=== PATIENT | male | born 1960 | race Caucasian/White ===

== ENCOUNTER 2016-10-24 12:39 | Observation (INO) ==
--- NOTE | 2016-10-24 13:02 | Emergency Department Note ---
Disposition Clinical Impression: Chest pain Qualifiers: Chest pain type: unspecified Qualified Code(s): R07.9 - Chest pain, unspecified Disposition: Admitted As Inpatient Condition: Good Referrals: NONE,PCP [Primary Care Provider] - Forms: ED Satisfaction Letter Chest Pain HPI - General Chief Complaint: ED Chest Pain Stated Complaint: CP// IFRAH// Dizzy Time Seen by Provider: 10/24/16 12:48 Source: patient Limitations: no limitations Vital Signs Reviewed: Yes Nursing Notes Reviewed: Yes - History of Present Illness Pt complaint: chest pain Onset (ago): day(s) (5) Duration: intermittent Onset: during rest Pain Location: left chest Severity scale (1-10): 3 Quality: tightness, aching Pain Radiation: LUE, neck, jaw/teeth Improves with: nothing Worsens with: nothing Context: other (2 stents LAD 2 weeks ago) Treatments prior to arrival chest pain: none - Related Data Allergies Allergy/AdvReac Type Severity Reaction Status Date / Time No Known Allergies Allergy Verified 10/24/16 12:43 All systems ED: reviewed and negative except as stated. Constitutional: Denies: fever, chills, weakness Gastrointestinal: Denies: abdominal pain, vomiting, diarrhea Integumentary: Denies: rash Chest Pain PMH - Past Medical History Medical history: Reports: coronary artery disease, myocardial infarction - Social History Smoking Status: Never smoker Alcohol use: Reports: none Drug use: Reports: none Physical Exam - General Limitations: no limitations General appearance: alert - Head Head exam: atraumatic, normocephalic, normal inspection - Eye Eye exam: Present: normal appearance, PERRL, EOMI - Expanded Eye Exam Pupils: Left: reactive - ENT ENT exam: normal exam, normal oropharynx, mucous membranes moist - Expanded ENT Exam External ear exam: Present: normal external inspection Mouth exam: Present: normal external inspection Teeth exam: Present: normal inspection Throat exam: Present: normal inspection - Neck Neck exam: Present: normal inspection, full ROM, trachea midline - Chest Chest inspection: Present: normal inspection, symmetric chest wall rise - Respiratory Respiratory exam: Present: normal lung sounds bilaterally - Cardiovascular Cardiovascular exam: Present: regular rate, normal rhythm, normal heart sounds - Abdominal Exam Abdominal exam: Present: soft, Non-Tender. Absent: tenderness, distention, guarding, rebound, rigidity - Extremities Exam Extremities exam: Present: normal inspection, full ROM. Absent: tenderness, pedal edema - Expanded Upper Extremity Exam Shoulder exam: Present: normal inspection, full ROM Arm exam: Present: normal inspection, full ROM Elbow exam: Present: normal inspection, full ROM Forearm/Wrist exam: Present: normal inspection, full ROM Hand exam: Present: normal inspection, full ROM Vascular exam: Normal: capillary refill, radial pulse - Expanded Lower Extremity Exam Hip/Pelvis exam: Present: normal inspection, full ROM Upper leg exam: Present: normal inspection, full ROM Knee exam: Present: normal inspection, full ROM Lower leg exam: Present: normal inspection, full ROM Ankle exam: Present: normal inspection, full ROM Foot/toe exam: Present: normal inspection, full ROM Neurovascular/Tendon exam: Absent: motor deficit, sensory deficit, tendon deficit - Back Exam Back exam: Present: normal inspection, full ROM. Absent: tenderness - Neurological Exam Neurological exam: Present: alert, oriented X3 - Expanded Neurological Exam Patient oriented to: Present: person, place, time Coma Scale Eye Opening: Spontaneous Coma Scale Motor Response: Obeys Commands Coma Scale Verbal Response: Oriented Coma Scale Total: 15 - Psychiatric Psychiatric exam: Present: normal affect, normal mood - Skin Skin exam: Present: warm, dry, intact, normal color Course - Consultations Consultation #1: dr. koch consulted will see on floor admit to medicine Time: 13:53 Vital Signs Temperature 97.8 F 10/24/16 12:41 Pulse Rate 85 10/24/16 12:41 Respiratory Rate 18 10/24/16 12:41 Blood Pressure 143/81 10/24/16 12:41 O2 Sat by Pulse Oximetry 97 10/24/16 12:41 Temperature 97.8 F 10/24/16 12:41 Pulse Rate 85 10/24/16 12:41 Respiratory Rate 18 10/24/16 12:41 Blood Pressure 143/81 10/24/16 12:41 O2 Sat by Pulse Oximetry 97 10/24/16 12:41 Oxygen Delivery Oxygen Delivery Room Air Chest Pain - Medical Records Medical records reviewed: Yes I reviewed the patient's medical records. - Lab Data Lab results reviewed: Yes I reviewed the patient's lab results. Result diagrams: 10/24/16 13:16 10/24/16 13:14 Lab Results 10/24/16 10/24/16 10/24/16 Range/Units 13:14 13:14 13:16 WBC 9.4 (4.3-11.1) K/mcL RBC 5.38 (4.19-5.50) M/mcL Hgb 15.0 (12.9-16.9) g/dL Hct 44.7 (37.5-50.1) % MCV 83.1 (83.0-100.0) fL MCH 27.9 L (28.0-33.3) pg MCHC 33.6 (31.6-35.5) g/dL RDW 13.3 (11.5-14.5) % Plt Count 291 (140-400) K/mcL MPV 9.9 (9.4-12.4) fL Immature Gran % 0.3 (0-4) % Seg Neutrophils % 70.8 % Lymphocytes % 20.7 % Monocytes % 6.9 % Eosinophils % 1.0 % Basophils % 0.3 % Neutrophils # 6.7 (1.6-8.9) K/mcL Lymphocytes # 1.9 (0.6-4.6) K/mcL Monocytes # 0.7 (0.0-1.3) K/mcL Eosinophils # 0.1 (0.0-0.6) K/mcL Basophils # 0.0 (0.0-0.2) K/mcL PT 12.3 H (9.4-12.1) Seconds INR 1.1 APTT 30.5 (26.0-36.0) Seconds Sodium 138 (136-145) mEq/L Potassium 4.0 (3.5-4.5) mEq/L Chloride 105 (98-109) mEq/L Carbon Dioxide 25 (19-29) mEq/L BUN 15 (8-26) mg/dL Creatinine 1.00 (0.72-1.25) mg/dL Est GFR ( Amer) > 60 (> 60) Est GFR (Non-Af Amer) > 60 (> 60) BUN/Creatinine Ratio 15 (6-26) Glucose 115 H (70-99) mg/dL Calculated Osmolality 288 (280-300) Calcium 9.4 (8.6-10.8) mg/dL Troponin I (0-0.03) ng/mL 10/24/16 Range/Units 13:16 WBC (4.3-11.1) K/mcL RBC (4.19-5.50) M/mcL Hgb (12.9-16.9) g/dL Hct (37.5-50.1) % MCV (83.0-100.0) fL MCH (28.0-33.3) pg MCHC (31.6-35.5) g/dL RDW (11.5-14.5) % Plt Count (140-400) K/mcL MPV (9.4-12.4) fL Immature Gran % (0-4) % Seg Neutrophils % % Lymphocytes % % Monocytes % % Eosinophils % % Basophils % % Neutrophils # (1.6-8.9) K/mcL Lymphocytes # (0.6-4.6) K/mcL Monocytes # (0.0-1.3) K/mcL Eosinophils # (0.0-0.6) K/mcL Basophils # (0.0-0.2) K/mcL PT (9.4-12.1) Seconds INR APTT (26.0-36.0) Seconds Sodium (136-145) mEq/L Potassium (3.5-4.5) mEq/L Chloride (98-109) mEq/L Carbon Dioxide (19-29) mEq/L BUN (8-26) mg/dL Creatinine (0.72-1.25) mg/dL Est GFR ( Amer) (> 60) Est GFR (Non-Af Amer) (> 60) BUN/Creatinine Ratio (6-26) Glucose (70-99) mg/dL Calculated Osmolality (280-300) Calcium (8.6-10.8) mg/dL Troponin I 0.00 (0-0.03) ng/mL - Radiology Data Radiology results reviewed: Yes I reviewed the patient's radiology results. - EKG Data EKG attestation: Yes I reviewed and interpreted this EKG. EKG shows normal: sinus rhythm Rate: normal Rhythm: NSR [place]/QRS: normal Interpretation: no acute changes
[2016-10-24 13:25] LABS: Basophils % 0.3 %; Eosinophils # 0.1 K/mcL (0.0-0.6); Hematocrit 44.7 % (37.5-50.1); Immature Granulocytes % 0.3 % (0-4); Lymphocytes # 1.9 K/mcL (0.6-4.6); Lymphocytes % 20.7 %; Mean Corpuscular HGB Conc 33.6 g/dL (31.6-35.5); Mean Corpuscular Hemoglobin 27.9 pg (28.0-33.3); Mean Corpuscular Volume 83.1 fL (83.0-100.0); Mean Platelet Volume 9.9 fL (9.4-12.4); Monocytes # 0.7 K/mcL (0.0-1.3); Monocytes % 6.9 %; Neutrophils # 6.7 K/mcL (1.6-8.9); Platelet Count 291 K/mcL (140-400); Red Blood Count 5.38 M/mcL (4.19-5.50); Red Cell Distribution Width 13.3 % (11.5-14.5); Segmented Neutrophils % 70.8 %
[2016-10-24 13:30] LABS: INR 1.1; Prothrombin Time 12.3 Seconds (9.4-12.1)
[2016-10-24 13:33] LABS: Activated Partial Thrombo Time 30.5 Seconds (26.0-36.0)
[2016-10-24 13:36] LABS: BUN/Creatinine Ratio 15 (6-26); Blood Urea Nitrogen 15 mg/dL (8-26); Calcium 9.4 mg/dL (8.6-10.8); Carbon Dioxide 25 mEq/L (19-29); Chloride 105 mEq/L (98-109); Glucose 115 mg/dL (70-99); Osmolality,Calculated 288 (280-300); Sodium 138 mEq/L (136-145); eGFR For African Americans > 60 (> 60); eGFR For Non-African Americans > 60 (> 60)
--- NOTE | 2016-10-24 15:06 | Cardiology Consult Note ---
<Sebastien,Cedric R - Last Filed: 10/24/16 15:03> Date of Encounter: 10/24/16 Time of Encounter: 15:04 Assessment and Plan (1) Unstable angina Current Visit: Yes Status: Acute Symptoms concerning for unstable angina. Troponin negative x 1. Trend for total of 3. EKG without ischemic changes. Pt reports worsening chest pain since Monday--left sided and midsternal, sharp in nature with radiation to left shoulder/axilla at times, associated with dyspnea and diaphoresis. Reports nitro helps the pain. Does not seem to be associated with exertion. Stress test 10/21/16 negative for ischemia or infarct. Echo 10/21/16 EF preserved without significant findings. Recent PCI in [place] September 2016 to RCA and prox LAD at bifurcation with diag. On ASA, Brilinta, Statin, BB. Continue these medications. 48 hour holter monitor turned in today. Recommend trending troponins, admitting for telemetry monitoring and plan for [facility] tomorrow AM to re-evaluate coronary disease/recent PCI. R/B/A discussed. Pt agrees. [facility] tomorrow. (2) CAD (coronary artery disease) Current Visit: Yes Status: Acute As above, recent PCI September 2016 in [place]. Continue ASA, Brilinta, Statin, BB. Qualifiers: Coronary Disease-Associated Artery/Lesion type: [place] artery [place] vs. transplanted heart: [place] heart Associated angina: with unstable angina Qualified Code(s): I25.110 - Atherosclerotic heart disease of [place] coronary artery with unstable angina pectoris (3) Near syncope Current Visit: Yes Status: Acute Describes dizziness, lightheadedness and near syncope that has worsened since starting BB. Holter monitor turned in today. Await results and monitor telemetry while inpt for any arrhythmias. Discussion w patient/family: The assessment and plan as outlined above was discussed with the patient and/or family members who expressed understanding and agreement. All questions were answered. Thank you for involving us in the care of your patient. Please call with any questions. I will discuss all the above with Dr. Rendon and make changes as necessary. History of Present Illness Consult date: 10/24/16 Requesting physician: Aleksandar Gutiérrez Consult reason: Chest pain Chief complaint: chest pain History of present illness: Mr. Acevedo is a 56 year old male with PMH of CAD s/p PCI 09/2016 in [place], HLD that presented to ED for worsening chest pain. He was seen by Dr. Stacy Acosta 10/18/16. At that time pt described chest pain as well--left sided and sharp with radiation to left axilla/shoulder. A stress test, echo and holter monitor were ordered. Stress test 10/21/16 negative for ischemia or infarct, gated EF 63%. Echo showed EF 60-65%, normal wall motion. Pt reports since stress test Monday the chest pain has continued to intensify, occurs multiple times per day, not associated with exertion, but relieved with nitro. He also reports dyspnea and diaphoresis. He reports since he started a BB 10/18/16 that dizziness has increased, near syncope. Troponin negative, EKG without acute changes. Cardiology consulted for further recommendations. Pt is concerned because in [place], they were debating on CABG vs. PCI and went with PCI. He is concerned there is still underlying disease. [facility] September 2016: 70% mid RCA-PCI 3.5 x 12mm windy 40% 1st OM 80% prox LAD at bifurcation with diag- PCI 3.5x8mm onyz with resultant jailed diagonal branch with LUIS MANUEL 3 flow. Past Med Surg Social Fam HX - Past Medical History Medical history: coronary artery disease, myocardial infarction - Past Surgical History Surgical History: angioplasty/stent - Social History Smoking Status: Former smoker Smokeless Tobacco Status: No Alcohol use: none Drug use: none Medications and Allergies Aspirin [Lo-Dose Aspirin EC] 81 mg PO DAILY 10/24/16 [History] Atorvastatin [Lipitor] 40 mg PO HS 10/24/16 [History] Metoprolol [Lopressor] 25 mg PO BID 10/24/16 [History] Nitroglycerin [Nitroglycerin] 0.4 mg PO Q5M PRN 10/24/16 [History] Pantoprazole Sodium 40 mg PO DAILY 10/24/16 [History] Ticagrelor [Brilinta] 90 mg PO BID 10/24/16 [History] Allergies No Known Allergies Allergy (Verified 10/24/16 12:43) All Systems Review: A 10-system review of systems was performed and is negative for pertinent findings except as documented above in the HPI. - Cardiovascular Cardiovascular: as per HPI, chest pain at rest, chest pain with exertion, diaphoresis, dyspnea at rest, dyspnea on exertion, radiating jaw, neck or arm pain, lightheadedness - Respiratory Respiratory: dyspnea - Neurological Neurological: dizziness Physical Examination Vital Signs, Last 4 Hours Resp BP 10/24/16 14:46 18 120/80 Vital Signs Temp Pulse Resp BP Pulse Ox 10/24/16 14:46 18 120/80 10/24/16 14:04 82 18 117/95 97 10/24/16 12:41 97.8 F 85 18 143/81 97 Intake and Output 10/23/16 10/24/16 10/24/16 23:59 07:59 15:59 Other: Weight 102.058 kg Patient Weight 10/24/16 23:59 Weight 102.058 kg General: Conversant HEENT: Atraumatic, Normocephaly, Mucus Membranes Moist Neck: No JVD, Normal carotid pulses Cardiac: Reg Rate and Rhythm, Normal S1 and S2, No Murmur Lungs: Normal Breath Sounds, No Wheeze, Rales, Rhonchi Neuro: Alert and responsive, No focal deficits noted Abdomen: Soft, Non-Tender Skin: No rashes noted on visualized skin Musculoskeletal: No Chest Wall Tenderness Extremities: No Clubbing, No Cyanosis, No Edema, Normal Pulses Results 10/24/16 13:16 10/24/16 13:14 Short CBC 10/24/16 Range/Units 13:16 WBC 9.4 (4.3-11.1) K/mcL Hgb 15.0 (12.9-16.9) g/dL Hct 44.7 (37.5-50.1) % Plt Count 291 (140-400) K/mcL Neutrophils # 6.7 (1.6-8.9) K/mcL BMP 10/24/16 Range/Units 13:14 Sodium 138 (136-145) mEq/L Potassium 4.0 (3.5-4.5) mEq/L Chloride 105 (98-109) mEq/L Carbon Dioxide 25 (19-29) mEq/L BUN 15 (8-26) mg/dL Creatinine 1.00 (0.72-1.25) mg/dL Glucose 115 H (70-99) mg/dL Calcium 9.4 (8.6-10.8) mg/dL Cardiac Enzymes 10/24/16 Range/Units 13:16 Troponin I 0.00 (0-0.03) ng/mL Impressions Chest X-Ray 10/24/16 13:01 IMPRESSION: No acute cardiopulmonary disease. D/ / Nicholas Ovalle MD / Nicholas Ovalle MD Interpreting Provider: Nicholas Ovalle MD - Imaging and Cardiology Stress Test: report reviewed Echo: report reviewed Cardiac cath: report reviewed Holter: pending - EKG Interpretation EKG results cardiology: personally reviewed (SR) Consult Discharge Plan - Plan Referrals: NONE,PCP [Primary Care Provider] - <Pavel Rendon - Last Filed: 10/24/16 16:24> Date of Encounter: 10/24/16 Assessment and Plan Discussion w patient/family: The assessment and plan as outlined above was discussed with the patient and/or family members who expressed understanding and agreement. All questions were answered. Thank you for involving us in the care of your patient. Please call with any questions. History of Present Illness History of present illness: Mr. Acevedo is a 56 year old male All Systems Review: A 10-system review of systems was performed and is negative for pertinent findings except as documented above in the HPI. Physical Examination Vital Signs, Last 4 Hours Temp Pulse Resp BP Pulse Ox 10/24/16 15:41 97.9 F 74 14 120/83 97 10/24/16 14:46 18 120/80 Results 10/24/16 13:16 10/24/16 13:14 - Attending Attestation Pt seen and examined, in ER, old records reviewed, stress and echo from last week reviewed Agree with essential findings as above, IMP/Plan: 1. Chest pain, atypical, enzemes and EKG negative so far, EKG unchanged, pt and reports similar symptoms before recent heart cath, with recommendations for CABG, which he refused, and had stent placed in proximal LAD. HE is pain free at present, stress imaging on 10/21 was negative for ischemia. Long conversation about options, recommend hospital admission, continue to ru,le out LA by enzematic criteria, left heart cath/possible PCI in AM. 2. CAD - Severe triple vessel CADd, with initial recs for CABG, pt declined, underwent PCi with SINCERE LAD, with partial jailing of proximal Cx. , Normal stress test with continued chest pain, may be due to balanced hypoperfusion, discussed risk and benefit ration of proceeding to [facility], both pt and agree to proceed, orders for NPO at midnight. 3. Palpitations -unclear etiology,has just completed 24 hour holter, will process and review when available, associated with chest pain, can be provoked by exercise.
[2016-10-24] MEDS ORDERED: Naloxone 0.4 MG/ML INJ IVP PRN (17:20)
[2016-10-24] MEDS ORDERED: Nitroglycerin 0.4 MG TAB.SUBL SL PRN (17:40)
--- NOTE | 2016-10-24 17:50 | Internal Med History&Physical ---
<Renard Hernandez J - Last Filed: 10/24/16 17:43> Date of Encounter: 10/24/16 Time of Encounter: 17:43 Assessment and Plan (1) Chest pain Current visit: Yes Status: Acute Worsening chest pain over the last 24 hours described as midsternal, shooting with radiation to left axilla, neck, jaw. Admits to shortness of breath, diaphoresis, nausea, palpitations, dizziness, weakness. Admit for obs Continuous telemetry continuous SPO2 monitoring Continuous oxygen therapy to maintain O2 SATS >92% Trend troponins x3 total Nitro SL for CP, Continue ASA, Brilinta, Nitro, and Statin Consult cardiology [facility] in AM per ENVIRONMENT COORDINATOR cardiology. Qualifiers: Chest pain type: unspecified Qualified Code(s): R07.9 - Chest pain, unspecified (2) Unstable angina Current visit: Yes Status: Acute Worsening chest pain over the last 24 hours with radiation to LT axilla, neck and jaw. Not aggravated with activity or alleviated with rest. Presumed unstable angina. Admit for obs Continuous telemetry continuous SPO2 monitoring Continuous oxygen therapy to maintain O2 SATS >92% Trend troponins x3 total Nitro SL for CP, Continue ASA, Brilinta, Nitro, and Statin Consult cardiology [facility] in AM per ENVIRONMENT COORDINATOR cardiology. (3) Near syncope Current visit: Yes Status: Acute Patient reports that he experienced a near syncopal event associated with chest pain, dyspnea, and tachycardia. Recent AL history s/p stent placement. Reviewed prior echo indicated preserved ejection fraction 60-65% Getting [facility] tomorrow (4) DVT prophylaxis Current visit: Yes Status: Acute D/T hospital stay and CP with dyspnea patient will be less mobile than his baseline placing him at risk for DVT. Start Lovenox 40 mg daily Internal Medicine - H&P: HPI Chief complaint: chest pain Admitted From: Home Plans for Post Hospital Care: Home History of present illness: Mr. Acevedo is a 56 year old male with PMH of CAD, AL 2 stents, status post left heart catheter 2 weeks ago while in [place]. Following AL and status post left heart catheter patient was placed on beta divina, aspirin, Brilinta. Presents to [facility] with worsening chest pain with radiation to left neck and jaw and axilla. EKG in the ED negative for ischemic changes. Troponin negative. CXR showed no acute process. Most recent echo showed preserved ejection fraction at 60-65%. Cardiology ENVIRONMENT COORDINATOR has seen patient in the emergency department and notes that the patient is agreeable to left heart catheter tomorrow. Patient reports chest pain began on Monday the day after heart catheter but notes it has been mild, but getting progressively worse. Last night chest pain increased immensely in intensity and described as midsternal, shooting with radiation to left axilla left neck and jaw. Pain is described as constant, denies worsening with activity. Additionally he notes a fast heart rate and palpitations and admits to shortness of breath, diaphoresis, nausea, dizziness, weakness, near syncopal episodes. He notes the chest pain is relieved with sublingual nitroglycerin. The patient appears to be in no distress at this time resting in bed family at bedside. Denies any chest pain currently, RRR, lungs CTA AP and L. he is being admitted to [facility] further workup and evaluation. Past Med Surg Social Fam HX - Past Medical History Medical history: coronary artery disease, myocardial infarction - Past Surgical History Surgical History: angioplasty/stent - Social History Smoking Status: Former smoker Smokeless Tobacco Status: No Alcohol use: none Drug use: none - Family History Father Race: Family Member Ethnicity: Non- Living Status: Age at : 71 Hx Family Cardiac Disorders: Yes Internal Medicine - H&P: Meds Aspirin [Lo-Dose Aspirin EC] 81 mg PO DAILY 10/24/16 [History] Atorvastatin [Lipitor] 40 mg PO HS 10/24/16 [History] Metoprolol [Lopressor] 25 mg PO BID 10/24/16 [History] Nitroglycerin [Nitroglycerin] 0.4 mg PO Q5M PRN 10/24/16 [History] Pantoprazole Sodium 40 mg PO DAILY 10/24/16 [History] Ticagrelor [Brilinta] 90 mg PO BID 10/24/16 [History] Allergies No Known Allergies Allergy (Verified 10/24/16 12:43) All Systems PM: A 10-system review of systems was performed and is negative for pertinent findings except as documented above in the HPI. - Constitutional Constitutional: fatigue, weakness, no chills, no fever(s), no night sweats - EENT Eyes: no change in vision, no discharge, no pain, no photophobia Ears: no ear discharge, no ear pain, no tinnitus Nose, mouth and throat: no dysphagia, no nasal discharge, no neck pain, no sore throat - Cardiovascular Cardiovascular ROS IM: diaphoresis (Dyspnea and diaphoresis noted with chest pain. However he denies CP at this time.), dyspnea, irregular heart rhythm ( Admits to feeling like his heart is racing and irregular), palpitations, no chest pain, no lightheadedness, no syncope - Respiratory Respiratory: no cough, no dyspnea, no wheezing, no excessive phlegm production - Gastrointestinal Gastrointestinal: no abdominal pain, no diarrhea, no hematemesis, no hematochezia, no melena, no nausea, no vomiting - Musculoskeletal Musculoskeletal ROS IM: no numbness, no tingling - Integumentary Integumentary IM: no rash, no unusual bruising - Neurological Neurological ROS: no confusion, no convulsions, no focal weakness, no numbness, no tingling, no tremor(s) - Hematologic/Lymphatic Hematologic/Lymphatic: no easy bruising - Constitutional Vitals: Temp Pulse Resp BP Pulse Ox 97.9 F 74 14 120/83 97 10/24/16 15:41 10/24/16 15:41 10/24/16 15:41 10/24/16 15:41 10/24/16 15:41 - Head Head exam: Present: atraumatic, normocephalic - Eye Eye exam: Present: PERRL, conjuntiva pink, sclera anicteric Pupils: Present: PERRL - Neck Neck exam general surgery: Present: supple, trachea midline. Absent: lymphadenopathy - Respiratory Respiratory exam: Present: CTAB. Absent: accessory muscle use, rales, rhonchi, wheezes - Cardiovascular Cardiovascular exam: Present: RRR, +S1, +S2. Absent: diastolic murmur, gallop, rubs, systolic murmur - GI/Abdominal GI/Abdominal exam: Present: normal bowel sounds, soft, no peritoneal signs. Absent: distended, tenderness - Extremities Exam Extremities exam: Present: warm, radial pulses palpable and symmetrical. Absent : calf tenderness, cyanotic, pedal edema - Neurological Exam Neurological exam: Present: CN II-XII intact, oriented X3, no focal deficits. Absent: pronater drift, facial droop, speech deficit - Skin Skin exam: Present: dry, intact Internal Med - H&P Results - Labs CBC & Chem 7: 10/24/16 13:16 10/24/16 13:14 - EKG Data EKG shows normal: sinus rhythm Rate: normal - EKG Data Prior EKG available for review: yes When compared to previous EKG: there is no significant change - Diagnostic Studies Chest x-ray Additional comments: no Acute coronary process <Mainor Guzman - Last Filed: 10/24/16 18:42> Date of Encounter: 10/24/16 Internal Medicine - H&P: HPI History of present illness: Mr. Acevedo is a 56 year old male All Systems PM: A 10-system review of systems was performed and is negative for pertinent findings except as documented above in the HPI. - Constitutional Vitals: Temp Pulse Resp BP Pulse Ox 98.1 F 84 14 126/79 97 10/24/16 18:27 10/24/16 18:27 10/24/16 18:27 10/24/16 18:27 10/24/16 18:27 Internal Med - H&P Results - Labs CBC & Chem 7: 10/24/16 13:16 10/24/16 13:14 - Attending Attestation I examined this patient and my medical decision-making was reviewed with the ENVIRONMENT COORDINATOR. I agree with the documented findings, disposition and treatment plan as described
[2016-10-24] MEDS: *HR* Ticagrelor 90 MG TABLET PO SCH (20:50)
[2016-10-25 02:41] LABS: Basophils % 0.4 %; Eosinophils # 0.1 K/mcL (0.0-0.6); Eosinophils % 1.3 %; Hematocrit 43.8 % (37.5-50.1); Hemoglobin 14.8 g/dL (12.9-16.9); Immature Granulocytes % 0.3 % (0-4); Lymphocytes # 2.2 K/mcL (0.6-4.6); Lymphocytes % 22.6 %; Mean Corpuscular HGB Conc 33.8 g/dL (31.6-35.5); Mean Corpuscular Hemoglobin 28.1 pg (28.0-33.3); Mean Corpuscular Volume 83.1 fL (83.0-100.0); Mean Platelet Volume 9.8 fL (9.4-12.4); Monocytes # 0.7 K/mcL (0.0-1.3); Monocytes % 7.1 %; Neutrophils # 6.5 K/mcL (1.6-8.9); Platelet Count 271 K/mcL (140-400); Red Blood Count 5.27 M/mcL (4.19-5.50); Red Cell Distribution Width 13.3 % (11.5-14.5); Segmented Neutrophils % 68.3 %
[2016-10-25 02:53] LABS: Alanine Aminotransferase 23 Units/L (0-55); Albumin 3.9 g/dL (3.5-5.0); Albumin/Globulin Ratio 1.2 (1.1-2.2); Alkaline Phosphatase 73 Units/L (38-126); Aspartate Amino Transferase 21 Units/L (5-34); BUN/Creatinine Ratio 12 (6-26); Bilirubin,Total 0.7 mg/dL (0.2-1.2); Blood Urea Nitrogen 12 mg/dL (8-26); Calcium 9.6 mg/dL (8.6-10.8); Carbon Dioxide 28 mEq/L (19-29); Chloride 105 mEq/L (98-109); Globulin 3.3 g/dL (2.4-3.5); Glucose 102 mg/dL (70-99); Osmolality,Calculated 292 (280-300); Potassium 4.1 mEq/L (3.5-4.5); Total Protein 7.2 g/dL (6.0-8.3); eGFR For African Americans > 60 (> 60); eGFR For Non-African Americans > 60 (> 60)
[2016-10-25 02:55] LABS: Sodium 141 mEq/L (136-145)
[2016-10-25] MEDS: Aspirin Enteric Coated 81 MG Tablet PO SCH (08:48)
[2016-10-25] MEDS: *HR* Ticagrelor 90 MG TABLET PO SCH ×2 (08:49→20:40)
[2016-10-25] MEDS ORDERED: *HR* Midazolam HCl 2 MG/2 ML VIAL ONE ×2 (08:52→15:59)
[2016-10-25] MEDS ORDERED: *HR* FentaNYL (PF) 100 MCG/2 ML VIAL ONE ×2 (08:52→15:59)
[2016-10-25] MEDS ORDERED: *HR* Heparin 10,000 UNIT/10 ML VIAL ONE (08:53)
[2016-10-25] MEDS ORDERED: Heparin 1,000 UNITS/500 mL NS 500 ML ONE (08:53)
[2016-10-25] MEDS ORDERED: Nitroglycerin 1,000 MCG/10 ML VIAL IV ONE (08:53)
[2016-10-25] MEDS ORDERED: 0.9 % Sodium Chloride 2,000 ML ONE (08:53)
[2016-10-25] MEDS ORDERED: Isosorbide MONOnitrate (24 HR) 30 MG TAB.ER.24H PO SCH (09:30)
[2016-10-25] MEDS: Acetaminophen 325 MG TABLET PO PRN ×2 (11:33→20:40)
--- NOTE | 2016-10-25 13:09 | Internal Med Progress Note ---
Date of Encounter: 10/25/16 Time of Encounter: 12:20 - Assessment and plan (1) Chest pain Current Visit: Yes Status: Acute Assessment and plan: History of chest pain for last 3 months. Pt was stented in [place] 2 weeks ago while he was there for work. CABG was recommended, however, he was away from home and family and wanted to get home, so he was stented. Pain returned, prompting visit to ED. 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 He currently denies chest pain. Troponins are negative. Chest xray negative for acute cardiopulmonary disease. [facility] pending Continue telemetry Titrate 02 prn to maintain sats > 92%. Continue ASA, Brilinta, NTG and statin Qualifiers: Chest pain type: unspecified Qualified Code(s): R07.9 - Chest pain, unspecified (2) Unstable angina Current Visit: Yes Status: Acute Assessment and plan: Worsening chest pain over the last 24 hours with radiation to left axilla, neck , and jaw. No relieving or aggravating factors. Plan as above. (3) CAD (coronary artery disease) Current Visit: Yes Status: Acute Assessment and plan: Stents 2 weeks ago. LHC pending this afternoon. Plan as above. Qualifiers: Coronary Disease-Associated Artery/Lesion type: [place] artery [place] vs. transplanted heart: [place] heart Associated angina: with unstable angina Qualified Code(s): I25.110 - Atherosclerotic heart disease of [place] coronary artery with unstable angina pectoris (4) Near syncope Current Visit: Yes Status: Acute Assessment and plan: Pt reports a near syncopal episode 2 nights ago associated with chest pain, dyspnea, and tachycardia. Pt is 2 week s/p cardiac stent placement. [facility] pending Plan as above. (5) DVT prophylaxis Current Visit: Yes Status: Acute Assessment and plan: Pt is on Brilinta. - Time Spent With Patient less than 15 minutes - Subjective Interval history: Pt was seen and assessed at 1220. He is alert, oriented and ambulatory. Pt was getting ready for shower. He states that he does not have chest pain right now and attributes that to taking BB. He states that he had 3 month history of chest pain and 2-3 week history of pedal/LE edema. He states that he was in [place] for a week and was seen in the ED there and had an LHC done and 2 stents placed. He states that they wanted to do a CABG, but he was so far from home that he declined and decicded to wait until he got home. He states that the pain has returned intermittently and was so bad that it awakened him from sleep on Monday night, prompting him to go to the ER. He is aware of pending cath and has no questions or concerns. - Constitutional Vitals: Temp Pulse Resp BP Pulse Ox 97.9 F 76 16 101/67 97 10/25/16 11:39 10/25/16 11:39 10/25/16 11:39 10/25/16 11:39 10/25/16 11:39 General appearance: Present: cooperative, A&O X 3, pleasant, no acute distress, answers questions appropriately - Head Head exam: Present: normal inspection - Eye Eye exam: Present: normal appearance, conjuntiva pink - ENT ENT exam: Present: mucous membranes moist, normal exam, normal external ear exam - Neck Neck exam general surgery: Present: normal inspection, trachea midline. Absent : lymphadenopathy, tenderness - Respiratory Respiratory exam: Present: CTAB. Absent: chest wall tenderness, decreased breath sounds, prolonged expiratory phase, rales, respiratory distress, rhonchi , stridor, wheezes - Cardiovascular Cardiovascular exam: Present: RRR, +S1, +S2. Absent: clicks, diastolic murmur, gallop, systolic murmur - GI/Abdominal GI/Abdominal exam: Present: normal bowel sounds, soft. Absent: distended, hepatomegaly, tenderness - Extremities Exam Extremities exam: Present: normal inspection, warm, radial pulses palpable and symmetrical. Absent: pedal edema, tenderness - Neurological Exam Neurological exam: Present: alert, oriented X3, no focal deficits. Absent: altered, facial droop, speech deficit - Skin Skin exam: Present: dry, intact, normal color, warm Internal Medicine: Result - Labs CBC & Chem 7: 10/25/16 02:29 10/25/16 02:29 Labs: Short CBC 10/25/16 Range/Units 02:29 WBC 9.6 (4.3-11.1) K/mcL Hgb 14.8 (12.9-16.9) g/dL Hct 43.8 (37.5-50.1) % Plt Count 271 (140-400) K/mcL Neutrophils # 6.5 (1.6-8.9) K/mcL BMP 10/25/16 02:29 Sodium 141 Potassium 4.1 Chloride 105 Carbon Dioxide 28 BUN 12 Creatinine 1.04 Glucose 102 H Calcium 9.6 Cardiac Enzymes 10/24/16 10/25/16 Range/Units 18:12 02:29 Troponin I 0.00 0.00 (0-0.03) ng/mL Liver Function 10/25/16 Range/Units 02:29 Total Bilirubin 0.7 (0.2-1.2) mg/dL AST 21 (5-34) Units/L ALT 23 (0-55) Units/L Alkaline Phosphatase 73 (38-126) Units/L Albumin 3.9 (3.5-5.0) g/dL - ABG Interpretation ABG results: PT/INR, D-dimer PT 12.3 Seconds (9.4-12.1) H 10/24/16 13:14 Consult Discharge Plan - Plan Referrals: NONE,PCP [Primary Care Provider] -
[2016-10-25] MEDS ORDERED: 0.9 % Sodium Chloride 1,000 ML ONE (15:52)
--- NOTE | 2016-10-25 16:10 | Pre-Sedation Evaluation ---
Pre-sedation evaluation - Pre-sedation checklist Date of procedure: 10/25/16 Procedure: Heart Cath Recent Vitals: Last Vital Signs Temp 97.9 F 10/25/16 11:39 Pulse 76 10/25/16 11:39 Resp 16 10/25/16 11:39 BP 101/67 10/25/16 11:39 Pulse Ox 97 10/25/16 11:39 H&P (including ROS) documented in medical record: Yes Previous reaction to sedatives/anesthetics: No Dietary Status: NPO after Midnight Airway Assessment: Patient can open mouth completely, TMJ function normal, Micrognathia (under-bite, receding chin) absent, Neck with adequate range of motion Dentition: No loose teeth or bridges Possible difficult airway: No ASA Classification *see protocol: CLASS II-Mild systemic disease Plan of Care: Pt appropriate candidate for procedure/moderate/conscious sedation , Risks/benefits of procedure/sedation discussed w/ patient/family
--- NOTE | 2016-10-25 16:53 | Invasive Diagnostic Lab Proc ---
Name: Delfin Acevedo Date of Study: 10/25/2016 Date: 1960 Ht: 75.2in Medical Record#: [id number] Age: 56 Wt: 229.28lb Gender: Male BSA: 2.33 Order #: [id number] BMI: 28.51 Physicians Procedure Physician: Stacy Acosta MD, FACC Referring MD: Referring MD: Staff Name Position Time In Jossie Nash RN Keying Machine Operator 04:08 PM Danika Parks RN Keying Machine Operator 04:08 PM Real Wang RT (R) Monitor 04:08 PM Rebekah Cortez RT Scrub 04:10 PM Beti Anne RT (R) Monitor 04:11 PM Indications Indication Unstable Angina Procedures Performed Procedure L HRT ARTERY/VENTRICLE ANGIO Pre-Procedure Checklist Informed consent is complete signed and on chart. H&P is on chart. ID band is on and ID verified with patient. Patient NPO for procedure The procedure was described for the patient and questions were answered. ECG is on chart. Plan of Care Patient will tolerate the procedure without complications. Adequate level of comfort will be maintained. Hemodynamics will remain stable Patient will recover from procedure without complications. Respiratory function will be maintained. Cardiac rhythm will remain stable. Patient temperature will be maintained. Patient and/or family have verbalized understanding of the procedure. Patient Education Chief Complaint/Reason for Test: Cardiac Cath Developmental Category: Adult (18-64 years) Developmentally Appropriate for Age: Yes Learning Barriers: None Education Needs: Procedure Education Method: Verbal Information Taught: Cardiac Cath Educational Evaluation: Able to repeat information Intravenous Access Time IV Size Location DC'd Fluid/Drip Rate Units RN 04:06 PM 20g 1 1/4" Patent On Arrival Lt Antecubital 0.9NaCl 25 Jossie Nash RN Allergies No Known Allergies Vital Signs Time BP (mmHg) HR (bpm) O2 Sat. RR (bpm) LOC 04:08 PM 113 / 62 84 99 % 04:13 PM 99 / 55 74 98 % 12 04:18 PM 101 / 57 82 99 % 15 04:23 PM 101 / 63 89 98 % 13 04:28 PM 103 / 61 95 98 % 15 04:33 PM 105 / 60 87 99 % 15 Procedural Medications Time Medication Dose Units Method Given By 04:11 PM Oxygen 2 L/min nasal cannula Polo Wooten RN 04:11 PM Versed 2 mg Intravenous Polo Wooten RN 04:11 PM Fentanyl 50 mcg Intravenous Polo Wooten RN 04:17 PM Lidocaine 2% 12 ml Subcutaneous Stacy Acosta MD, [facility] 04:22 PM Nitroglycerin 200 mcg Intracoronary Stacy Acosta MD, [facility] 04:22 PM Benadryl 25 mg Intravenous Polo Wooten RN ASA Classification: CLASS II- Mild systemic disease (i.e. well-controlled diabetes, hypertension, asthma, cigarette smoking) Christy Score Preprocedure Postprocedure Activity 2- Moves 4 extremities sustained head lift Activity 2- Moves 4 extremities sustained head lift Circulation 2- SBP +/= 20 points of pre-anesthetic level Circulation 2- SBP +/= 20 points of pre-anesthetic level Consciousness 2- Awake and alert oriented x 3 Consciousness 2- Awake and alert oriented x 3 O2 Saturation 2- Able to maintain O2 satruation of 92% on room air O2 Saturation 2- Able to maintain O2 satruation of 92% on room air Respiratory 2- Able to deep breathe and cough well Respiratory 2- Able to deep breathe and cough well Total Score 10 Total Score 10 Contrast Agent: Isovue Diagnostic Contrast: 83 ml Total Contrast: 83 ml Fluoro Dose: 207 mGy Procedure Log Time Note Enter By 04:05 PM CathStat 04:07 PM Pt arrived to laboratory asst 2 at 16:07 [email or web address] 04:07 PM Patient charges- Angio tray pack, Navilyst 3mm J, Pulse Oximetry and ACIST tubing and transducer [email or web address] 04:07 PM Vitals capture started with the following parameters, Patient=Adult, Interval=5 min, Initial Qzuwewfj=549 mmHg, Deflation Rate=5 mmHg, Cuff placed on Left Arm 04:08 PM Physician arrived 16:07 [email or web address] 04:08 PM Meet and greet completed [email or web address] 04:08 PM Sign in performed according to hospital policy. [email or web address] 04:08 PM ASA Class CLASS II- Mild systemic disease (i.e. well-controlled diabetes, hypertension, asthma, cigarette smoking) [email or web address] 04:08 PM Procedure start 16:08 [email or web address] 04:08 PM HR=84 bpm, MSWJ=947/62 mmhg, SpO2=99.0 % 04:08 PM Jossie Nash RN Position: Keying Machine Operator Time in: 16:08 [email or web address] 04:09 PM Recorded ECG: HR=76 Condition=Condition 1 04:11 PM Rebekah Cortez RT Position: Scrub Time in: 16:10 tsites 04:11 PM Dayana Beti RT (R) Position: Monitor Time in: 16:11 tsites 04:11 PM Case Delayed No tsites 04:11 PM Time: 16:11 Oxygen on at 2 L/min per nasal cannula by Polo Wooten RN tsites 04:11 PM Time: 16:11 Versed 2 mg Intravenous Given by Polo Wooten RN tsites 04:11 PM Time: 16:11 Fentanyl 50 mcg Intravenous Given by Polo Wooten RN tsites 04:13 PM Pressure channel 1 zeroed. 04:13 PM HR=74 bpm, NIBP=99/55 mmhg, SpO2=98 %, Resp=12 B/min 04:15 PM Clinical Presentation: Stable angina tsites 04:17 PM Time out performed according to hospital policy tsites 04:18 PM HR=82 bpm, PZTK=212/57 mmhg, SpO2=99.0 %, Resp=15 B/min 04:18 PM Time: 16:17 12 ml Lidocaine 2% to right groin Subcutaneous Given by Stacy Acosta MD, [facility] tsites 04:19 PM Access obtained by percutaneous puncture. 5Fr 10cm Terumo [place] sheath placed in right Femoral artery. [id number] tsites 04:19 PM 0.035 145cm Navilyst 3mmJ wire [id number] tsites 04:19 PM 5Fr FL 4 catheter inserted over the wire [facility] tsites 04:19 PM Wire removed tsites 04:20 PM Recorded Pressure: Ao, HR=79, Condition=Condition 1 (Aorta) Ao 88/65/78 04:20 PM LCA angiography performed in multiple views. tsites 04:22 PM Time: 16:22 Nitroglycerin 200 mcg Intracoronary Given by Stacy Acosta MD, [facility] tsites 04:22 PM Time: 16:22 Benadryl 25 mg Intravenous Given by Polo Wooten RN tsites 04:23 PM HR=89 bpm, UZEM=013/63 mmhg, SpO2=98 %, Resp=13 B/min 04:24 PM wire reinserted catheter removed tsites 04:24 PM 5Fr FR 4 catheter inserted over the wire [facility] tsites 04:25 PM RCA angiography performed in multiple views. tsites 04:25 PM wire reinserted catheter removed tsites 04:26 PM 5Fr Pigtail catheter inserted over the wire [facility] tsites 04:26 PM Catheter selectively placed in left ventricle tsites 04:27 PM Pressure channel 1 zero failed. 04:27 PM Pressure channel 1 zeroed. 04:27 PM Recorded Pressure: LV, HR=95, Condition=Condition 1 (Left Ventricle) LV 88/4/4 04:27 PM Bolus angiogram of left Ventricle complete: 8 ml/sec for a total of 24 mls tsites 04:28 PM Recorded Pressure: LV, Ao, HR=95, Condition=Condition 1 (Left Ventricle) LV 107/47/73, (Aorta) Ao 96/77/87 04:28 PM HR=95 bpm, COIU=576/61 mmhg, SpO2=98.0 %, Resp=15 B/min 04:28 PM wire reinserted catheter removed tsites 04:32 PM Bolus angiogram of right Femoral complete: 2 ml/sec for a total of 4 mls tsites 04:32 PM Coronary Dominance: right tsites 04:32 PM Procedure completed at 16:32 tsites 04:33 PM HR=87 bpm, OLGG=424/60 mmhg, SpO2=99 %, Resp=15 B/min 04:33 PM Sign out completed: Radiation Dose 207 mGy Fluoro Time: 1.1 Isovue 370 - 500ml contrast 83 ml given by Stacy Acosta MD, [facility]. Complications: NoneCardiac Rehab Consult needed: NoConfirmed administered medications: Yes tsites 04:33 PM Isovue 370 - 500ml,1 Bottle(s) used. tsites 04:34 PM Arterial sheath pulled, Mynx closure device used and was Successful S/N. tsites 04:34 PM Post ECG NSR tsites 04:34 PM Post Blood Pressure 105/60 tsites 04:34 PM 16:34 Post Pulses Bilateral DP & PT 2+ tsites 04:35 PM Information taught Cardiac Cath and Mynx tsites 04:35 PM Education needs Procedure, Plan of Care, and Responsibilities of Patient in Care tsites 04:35 PM Learning barriers :None tsites 04:35 PM Education Methods Verbal tsites 04:35 PM Education evaluation Able to repeat information tsites 04:36 PM Site status No bleeding/hematoma - Rt Groin as reported by Rebekah Cortez RT at 16:36 tsites 04:36 PM Opsite applied tsites 04:37 PM Delay to floor No tsites 04:37 PM Patient out of room: 16:37 tsites 04:40 PM Lesion found in Mid LAD. Pre Stenosis: 30 Pre LUIS MANUEL Flow: tsites 04:40 PM Lesion found in Distal LAD. Pre Stenosis: 50 Pre LUIS MANUEL Flow: tsites 04:40 PM Lesion found in Proximal Circumflex. Pre Stenosis: 25 Pre LUIS MANUEL Flow: tsites 04:40 PM Lesion found in Mid Circumflex. Pre Stenosis: 30 Pre LUIS MANUEL Flow: tsites 04:41 PM Lesion found in 1st Marginal. Pre Stenosis: 30 Pre LUIS MANUEL Flow: tsites 04:41 PM Lesion found in 1st Diagonal. Pre Stenosis: 30 Pre LUIS MANUEL Flow: tsites 04:41 PM Lesion found in Right PDA. Pre Stenosis: 30 Pre LUIS MANUEL Flow: tsites 04:41 PM Mid/Distal Left Anterior Descending Coronary Artery and diagonal branches with 50% stenosis. If graft is supplying this area, 0 % stenosis tsites 04:41 PM Circumflex, Obtuse Marginal, Left Posterior Descending, and Left Posterolateral Coronary Arteries with 30 % stenosis. If graft is supplying this area, 0 % stenosis tsites 04:42 PM Right Coronary, Right Posterior Descending Arteries with Right Posterolateral and Acute Marginal branches with 30 % stenosis. If graft is supplying this area, 0 % stenosis tsites Complications Complication None Hemodynamics Pressures Site Systolic/A Wave Diastolic/V Wave Mean AO 88 65 78 LV 88 4 4 LV 107 47 73 AO 96 77 87 Post Procedure Information Blood Pressure: 105/60 mmHg Rhythm: NSR Post procedural instructions were given Closure Device Time Device Success/Fail 10/25/2016 4:42:00 PM MynxGrip Successful Site Checks Time Location Status Staff Sheath In? Note 04:36 PM Rt Groin No bleeding/hematoma Rebekah Cortez RT Pulses Time Site Pre-Procedure Post-Procedure Note 10/25/2016 4:06:00 PM Bilateral radial 2+ 10/25/2016 4:06:00 PM Bilateral DP & PT 2+ 4:34:00 PM Bilateral DP & PT 2+ Updated by Beti Anne RT (R) on 10/25/2016 4:47:28 PM Beti Sites, RT electronically signed on 10/25/2016 4:47:53 PM with status of Final
--- NOTE | 2016-10-25 17:42 | Invasive Diagnostic Lab ---
Name: Delfin Acevedo Date of Study: 10/25/2016 Date: 1960 Ht: 191.0 cm /75.2 in Medical Record#: [id number] Age: 56 Wt: 104. kg / 229.28 lb Account/Order#: [id number] Gender: Male BSA: 2.33 Order #: [id number] Fluoro Dose: 207 mGy BMI: 28.51 Procedure Physician: Stacy Acosta MD, FACC Referring MD: Referring MD: Procedures Performed: LEFT HEART CATH Indications: Unstable Angina Impressions: Double vessel coronary artery disease. Previously stented mid RCA and proximal LAD widely patent. The left ventricle is normal and has normal contractility EF 60% Recommendations: Optimal medical therapy of patient's disease. Aggressive risk factor modification. History/Risk Factors: CP CAD Fatigue SOB Diaphoresis Palpitations. PCI x 2 stents Prior SD Previous PCI Procedure Access obtained in the right Femoral artery by percutaneous puncture Complications: None Contrast: Isovue 83ml Closure Device: MynxGrip Hemodynamics: Pressures Site Systolic/ A Wave Diastolic/ V Wave End Diastolic/ Mean HR AO 88 65 78 79 LV 88 4 4 95 LV 107 47 73 94 AO 96 77 87 96 LV Ventriculography Ejection Method: LV Gram Ejection Fraction: 60% Wall Motion: MOE Anterobasal Normal Anterolateral Normal Apical: Normal Inferoapical Normal Inferobasal Normal Coronary Dominance: right Lesion Findings/Interventions * Left Main Coronary Artery The LMCA is angiographically free of disease. * Left Anterior Descending The Proximal LAD has patent stent present from a previous procedure. There is a 30% stenosis in the Mid LAD. There is a 50% stenosis in the Distal LAD. There is a 30% stenosis in the 1st Diagonal. * Circumflex There is a 25% stenosis in the Proximal Circumflex. There is a 30% stenosis in the Mid Circumflex. There is a 30% stenosis in the 1st Marginal. * Right Coronary Artery The Mid RCA has patent stent present from a previous procedure. There is a 30% stenosis in the Right PDA. Updated by Beti Anne, RT (R) on 10/25/2016 4:48:00 PM Stacy Acosta MD, FACC electronically signed on 10/25/2016 5:34:41 PM with status of Final
[2016-10-26 04:43] LABS: Basophils % 0.2 %; Eosinophils # 0.1 K/mcL (0.0-0.6); Hematocrit 42.6 % (37.5-50.1); Hemoglobin 13.7 g/dL (12.9-16.9); Immature Granulocytes % 0.5 % (0-4); Lymphocytes # 1.8 K/mcL (0.6-4.6); Lymphocytes % 18.6 %; Mean Corpuscular HGB Conc 32.2 g/dL (31.6-35.5); Mean Corpuscular Hemoglobin 27.1 pg (28.0-33.3); Mean Corpuscular Volume 84.4 fL (83.0-100.0); Mean Platelet Volume 9.9 fL (9.4-12.4); Monocytes # 0.8 K/mcL (0.0-1.3); Neutrophils # 6.9 K/mcL (1.6-8.9); Platelet Count 261 K/mcL (140-400); Red Blood Count 5.05 M/mcL (4.19-5.50); Red Cell Distribution Width 13.3 % (11.5-14.5); Segmented Neutrophils % 71.7 %
[2016-10-26 05:00] LABS: BUN/Creatinine Ratio 17 (6-26); Blood Urea Nitrogen 17 mg/dL (8-26); Calcium 9.4 mg/dL (8.6-10.8); Carbon Dioxide 32 mEq/L (19-29); Chloride 104 mEq/L (98-109); Glucose 103 mg/dL (70-99); Osmolality,Calculated 294 (280-300); Sodium 141 mEq/L (136-145); eGFR For African Americans > 60 (> 60); eGFR For Non-African Americans > 60 (> 60)
[2016-10-26 05:09] LABS: Potassium 4.2 mEq/L (3.5-4.5)
--- NOTE | 2016-10-26 06:56 | Electrocardiograph Report ---
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
[2016-10-26 07:35] VITALS: BP 117/73
--- NOTE | 2016-10-26 08:46 | Cardiology Progress Note ---
Date of Encounter: 10/26/16 Time of Encounter: 08:44 Assessment and Plan (1) Chest pain Current Visit: Yes Status: Acute S/P LHC yesterday to rule out unstable angina. LHC revealed double vessel CAD, previously stented mid RCA and pLAD widely patent. EF 60%. Negative stress and normal echo 10/21/16. Chest pain is noncardiac. Has not had any recurrent pain since admission and since Prilosec was started. Recommend continuing Prilosec at discharge. Right femoral access site healing well. No bleeding, hematoma or ecchymosis noted. Cardiology signing off. Reconsult PRN. Follow-up as outpt in 2-3 weeks. Qualifiers: Chest pain type: unspecified Qualified Code(s): R07.9 - Chest pain, unspecified (2) CAD (coronary artery disease) Current Visit: Yes Status: Acute Recent PCI in [place] September 2016 to RCA and prox LAD at bifurcation with diag. On ASA, Brilinta, Statin, BB. Continue these medications. DAPT (ASA and Brilinta ) uninterrupted x 1 year. LHC yesterday showed widely patent mid RCA and pLAD stents. No intervention warranted. Qualifiers: Coronary Disease-Associated Artery/Lesion type: [place]ominee artery [place] vs. transplanted heart: menominee heart Associated angina: with unstable angina Qualified Code(s): I25.110 - Atherosclerotic heart disease of menominee coronary artery with unstable angina pectoris (3) Near syncope Current Visit: Yes Status: Acute Describes dizziness, lightheadedness and near syncope that has worsened since starting BB. Holter monitor does not show any arrhythmia--2 PVCs and 10 PACs. Telemetry while inpt has been normal. Brain MRI was ordered to rule out CVA, negative. Discussion w patient/family: The assessment and plan as outlined above was discussed with the patient and/or family members who expressed understanding and agreement. All questions were answered. Thank you for involving us in the care of your patient. Please call with any questions. I will discuss all the above with Dr. Rendon and make changes as necessary. Subjective Principal diagnosis: CAD Interval history: S/P LHC yesterday showed double vessel CAD, previously stented mid RCA and pLAD widely patent. EF 60%. Brain MRI was ordered due to new onset of dizziness after his cath in September in [place]. Brain MRI negative. Holter monitor preliminary report--2 PVCs and 10 PACs, normal holter. Pt denies any chest pain overnight. Objective Vital Signs, Last 4 Hours Temp Pulse Resp BP Pulse Ox 10/26/16 07:32 98.4 F 77 16 117/73 95 Vital Signs Temp Pulse Resp BP Pulse Ox 10/26/16 07:32 98.4 F 77 16 117/73 95 10/25/16 23:05 97.8 F 77 16 106/76 96 10/25/16 18:28 72 16 113/65 97 10/25/16 18:00 70 16 102/65 96 10/25/16 17:47 72 16 102/67 97 10/25/16 17:32 80 16 105/66 96 10/25/16 17:18 81 16 98/59 96 10/25/16 17:08 97.8 F 76 16 100/62 97 10/25/16 17:00 97.8 F 79 16 100/62 97 10/25/16 11:39 97.9 F 76 16 101/67 97 Intake and Output 10/25/16 10/26/16 10/26/16 23:59 07:59 15:59 Other: Meal NPO DINNER # Voids 2 # Bowel Movements 1 Weight 104.78 kg Patient Weight 10/26/16 23:59 Weight 104.78 kg General: Conversant, No Apparent Distress HEENT: Atraumatic, Normocephaly, Mucus Membranes Moist Neck: No JVD, Normal carotid pulses Cardiac: Reg Rate and Rhythm, Normal S1 and S2, No Murmur Lungs: Normal Breath Sounds, No Wheeze, Rales, Rhonchi Neuro: Alert and responsive, No focal deficits noted Abdomen: Soft, Non-Tender Skin: Other (right femoral access site healing well. No bleeding, hematoma or ecchymosis noted.) Musculoskeletal: No Chest Wall Tenderness Extremities: No Clubbing, No Cyanosis, No Edema, Normal Pulses Results 10/26/16 04:12 10/26/16 04:12 Lab Results 10/26/16 10/26/16 04:12 04:12 WBC 9.6 Hgb 13.7 Hct 42.6 Plt Count 261 Sodium 141 Potassium 4.2 Chloride 104 Carbon Dioxide 32 H BUN 17 Creatinine 1.02 Glucose 103 H Calcium 9.4 Short CBC 10/26/16 Range/Units 04:12 WBC 9.6 (4.3-11.1) K/mcL Hgb 13.7 (12.9-16.9) g/dL Hct 42.6 (37.5-50.1) % Plt Count 261 (140-400) K/mcL Neutrophils # 6.9 (1.6-8.9) K/mcL BMP 10/26/16 Range/Units 04:12 Sodium 141 (136-145) mEq/L Potassium 4.2 (3.5-4.5) mEq/L Chloride 104 (98-109) mEq/L Carbon Dioxide 32 H (19-29) mEq/L BUN 17 (8-26) mg/dL Creatinine 1.02 (0.72-1.25) mg/dL Glucose 103 H (70-99) mg/dL Calcium 9.4 (8.6-10.8) mg/dL Impressions Brain MRI 10/25/16 16:58 IMPRESSION: No acute infarct. D/ / Richard Mckeon MD / Richard Mckeon MD Interpreting Provider: Richard Mckeon MD Active Medications Acetaminophen (Tylenol) 650 mg PO Q6HR PRN PRN Reason: Headache Stop: 04/26/17 11:18 Last Admin: 10/25/16 20:40 Dose: 650 mg Aspirin (Aspirin Ec) 81 mg PO DAILY MOO Stop: 04/26/17 09:01 Last Admin: 10/25/16 08:48 Dose: 81 mg Atorvastatin Calcium (Lipitor) 40 mg PO HS MOO Stop: 04/25/17 21:01 Last Admin: 10/25/16 20:40 Dose: 40 mg Metoprolol Tartrate (Lopressor) 25 mg PO BID MOO Stop: 04/25/17 21:01 Last Admin: 10/25/16 20:40 Dose: 25 mg Naloxone HCl (Narcan) 0.4 mg IVP Q2MIN PRN PRN Reason: Opioid Reversal Stop: 04/25/17 17:21 Nitroglycerin (Nitroglycerin) 0.4 mg SL Q5MIN PRN PRN Reason: Chest Pain Stop: 04/25/17 17:41 Omeprazole (Prilosec) 40 mg PO DAILY MOO Stop: 04/26/17 09:01 Last Admin: 10/25/16 08:48 Dose: 40 mg Ticagrelor (Brilinta) 90 mg PO BID [facility] Stop: 04/25/17 21:01 Last Admin: 10/25/16 20:40 Dose: 90 mg - Imaging and Cardiology Stress Test: report reviewed Echo: report reviewed Cardiac cath: report reviewed Holter: report reviewed - EKG Interpretation EKG results cardiology: other (12 hr tele AVG HR 70, SR, no significant pauses or arrhythmias) Consult Discharge Plan - Plan Additional Instructions: RISK FACTORS: STOP SMOKING: If you smoke, STOP. Smoking or tobacco use significantly increases your risk of heart disease because nicotine causes the arteries to narrow or constrict. It also causes fats to stick to the artery. Your chances of having a heart attack are greatly increased if you continue to smoke. For more information, call the education line for smoking cessation 6-764-IJHQPSC EAT A LOW FAT/CHOLESTEROL/SODIUM DIET: This diet may help reduce your chances of having a heart attack. LIFTING: Avoid lifting anything more than 10 pounds for 5-7 days Prior to straining, laughing, sneezing and/or coughing, apply manual pressure directly over insertion site. ACTIVITY: You may walk or climb stairs as tolerated You can resume sexual activity as tolerated In general, you are encouraged to engage in a minimum of 30 minutes or more of moderate intensity physical activity, such as brisk walking, daily or at least 3 -4 times weekly BATHING Do not submerge the site into water (bath tub, hot tub, swimming pool) for 1 week. This can be a source for infection into the blood stream. You may shower after 24 hours SITE CARE: After 24 hours, you may remove the dressing and leave the site open to air. Keep the site clean and dry. Clean gently and pat dry. You can expect bruising and tenderness that gradually resolve within a week or two. Return to work as instructed per your physician Resume driving as instructed per physician Keep all scheduled follow up appointments Resume medications as instructed IMPORTANT: If prescribed a Platelet Aggregation Inhibitor such as, Plavix, Brilinta or Effient: Duration of therapy is minimum one year These medications are often used in combination with Aspirin in prevention of future heart attacks Never discontinue unless consult with your Movers STROKE (CVA) Risk factors for a stroke are: Age, cigarette smoking, diabetes, excessive alcohol consumption, family history, high blood pressure, overweight, physical inactivity, prior stroke, heart attack, diagnosis of carotid artery stenosis or other artery disease. Warning signs: Sudden numbness or weakness of the face, arm or leg; especially on one side of the body, sudden confusion, trouble speaking or understanding, sudden trouble seeing in one or both eyes, sudden trouble walking, dizziness, loss of balance or coordination, sudden severe headache with no cause. Call 911 or go to the Emergency Room. CONGESTIVE HEART FAILURE: If you have been diagnosed with Congestive Heart Failure (CHF) and your symptoms return, make an appointment with your physician Weigh yourself daily. Notify your physician if you have a weight gain of two or more pounds in one day or five or more pounds in one week. If you experience any difficulty breathing, please call 911 BLEEDING: Although the risk of bleeding is minimal, it can happen. If you have any bleeding from the site, apply firm pressure above the puncture site for 10-15 minutes. If the bleeding does not stop, continue manual pressure and call 911 Contact your physician if: You develop a fever greater than 101 degrees Fahrenheit Your site becomes reddened or has any drainage You have an increase in pain or burning at the site or if a large knot forms at the site. If you experience chest pain, shortness of breath, dizziness, or extreme tiredness, stop the activity and rest. Please notify your physicians office if you experience any of these symptoms and they are not relieved by rest please call 911! Referrals: NONE,PCP [Primary Care Provider] -
[2016-10-26] MEDS: *HR* Ticagrelor 90 MG TABLET PO SCH (09:16)
[2016-10-26] MEDS: Aspirin Enteric Coated 81 MG Tablet PO SCH (09:16)
--- NOTE | 2016-10-26 11:06 | Discharge Summary ---
Date of Encounter: 10/26/16 Time of Encounter: 10:55 - Discharge Diagnosis (1) Chest pain Priority: Primary Status: Acute Comments: Pt reports / mid sternal chest pain without radiation this a.m. Denies n/v or diaphoresis. Will continue Prilosec on discharge and pt will follow up with cardiology outpatient. Pt will continue ASA, statin, BB, and Brilinta. Qualifiers: Chest pain type: unspecified Qualified Code(s): R07.9 - Chest pain, unspecified (2) Unstable angina Priority: Secondary Status: Acute Comments: Plan as above. (3) CAD (coronary artery disease) Priority: Secondary Status: Acute Comments: Recent PCI in , September 2016 with stents to RCA and porx LAD at bifurcation with diag. LHC yesterday, EF 60%, double vessel CAD, stents patent. Plan as above. Qualifiers: Coronary Disease-Associated Artery/Lesion type: [place] artery [place] vs. transplanted heart: cherokee heart Associated angina: with unstable angina Qualified Code(s): I25.110 - Atherosclerotic heart disease of cherokee coronary artery with unstable angina pectoris (4) Near syncope Priority: Secondary Status: Acute Comments: Dizziness, lightheadedness and near syncope that has increased since starting BB. Brain MRI negative. Tele has been normal during admission. Continue BB for chest pain. (5) DVT prophylaxis Priority: Secondary Status: Acute Comments: Pt ambulatory and is also on Brilinta. - Discharge Medications Prescriptions: Pantoprazole Sodium 40 mg PO DAILY #30 Home Medications: Aspirin [Lo-Dose Aspirin EC] 81 mg PO DAILY 10/24/16 [History] Atorvastatin [Lipitor] 40 mg PO HS 10/24/16 [History] Metoprolol [Lopressor] 25 mg PO BID 10/24/16 [History] Nitroglycerin 0.4 mg PO Q5M PRN 10/24/16 [History] Ticagrelor [Brilinta] 90 mg PO BID 10/24/16 [History] Nitroglycerin 0.4 mg SL Q5MIN PRN 10/26/16 [Rx] Pantoprazole Sodium 40 mg PO DAILY #30 10/26/16 [Rx] Allergies/Adverse Reactions: Allergies No Known Allergies Allergy (Verified 10/24/16 12:43) Procedures/tests Complete & Pending: Procedures Performed prior 72 hours Category Date Time Status CL Cardiac Catheterization [CL] Routine Claims Adjuster Crop 10/25/16 08:00 Completed MR head/brain wo con [MR] Routine MRI 10/25/16 16:58 Completed Date of admission: 10/24/16 14:43 Primary care physician: PCP NONE Discharging clinician: Elif Canela Anticipated date of discharge: 10/26/16 - Patient Status Disposition: Home, Self-Care Condition: Good Functional capacity at discharge: independent ambulation Overall status at discharge: patient is back to baseline - Discharge Instructions Follow Up With: NONE,PCP [Primary Care Provider] - Additional Instructions: RISK FACTORS: STOP SMOKING: If you smoke, STOP. Smoking or tobacco use significantly increases your risk of heart disease because nicotine causes the arteries to narrow or constrict. It also causes fats to stick to the artery. Your chances of having a heart attack are greatly increased if you continue to smoke. For more information, call the education line for smoking cessation 4-889-MMNRFOS EAT A LOW FAT/CHOLESTEROL/SODIUM DIET: This diet may help reduce your chances of having a heart attack. LIFTING: Avoid lifting anything more than 10 pounds for 5-7 days Prior to straining, laughing, sneezing and/or coughing, apply manual pressure directly over insertion site. ACTIVITY: You may walk or climb stairs as tolerated You can resume sexual activity as tolerated In general, you are encouraged to engage in a minimum of 30 minutes or more of moderate intensity physical activity, such as brisk walking, daily or at least 3 -4 times weekly BATHING Do not submerge the site into water (bath tub, hot tub, swimming pool) for 1 week. This can be a source for infection into the blood stream. You may shower after 24 hours SITE CARE: After 24 hours, you may remove the dressing and leave the site open to air. Keep the site clean and dry. Clean gently and pat dry. You can expect bruising and tenderness that gradually resolve within a week or two. Return to work as instructed per your physician Resume driving as instructed per physician Keep all scheduled follow up appointments Resume medications as instructed IMPORTANT: If prescribed a Platelet Aggregation Inhibitor such as, Plavix, Brilinta or Effient: Duration of therapy is minimum one year These medications are often used in combination with Aspirin in prevention of future heart attacks Never discontinue unless consult with your Beef Lugger STROKE (CVA) Risk factors for a stroke are: Age, cigarette smoking, diabetes, excessive alcohol consumption, family history, high blood pressure, overweight, physical inactivity, prior stroke, heart attack, diagnosis of carotid artery stenosis or other artery disease. Warning signs: Sudden numbness or weakness of the face, arm or leg; especially on one side of the body, sudden confusion, trouble speaking or understanding, sudden trouble seeing in one or both eyes, sudden trouble walking, dizziness, loss of balance or coordination, sudden severe headache with no cause. Call 911 or go to the Emergency Room. CONGESTIVE HEART FAILURE: If you have been diagnosed with Congestive Heart Failure (CHF) and your symptoms return, make an appointment with your physician Weigh yourself daily. Notify your physician if you have a weight gain of two or more pounds in one day or five or more pounds in one week. If you experience any difficulty breathing, please call 911 BLEEDING: Although the risk of bleeding is minimal, it can happen. If you have any bleeding from the site, apply firm pressure above the puncture site for 10-15 minutes. If the bleeding does not stop, continue manual pressure and call 911 Contact your physician if: You develop a fever greater than 101 degrees Fahrenheit Your site becomes reddened or has any drainage You have an increase in pain or burning at the site or if a large knot forms at the site. If you experience chest pain, shortness of breath, dizziness, or extreme tiredness, stop the activity and rest. Please notify your physicians office if you experience any of these symptoms and they are not relieved by rest please call 911! Follow up with PCP in the next 7-10 days for a recheck, Follow up with cardiology as scheduled. Return to the ER as needed for any other problems or concerns or if your symptoms return. Take Protonix daily Resume your other medications Return to work after released by PCP or cardiology. - Diet and Activity Activity: increase activity as tolerated, return to work once cleared by your PCP/specialist Diet: low fat, low cholesterol Hospital course: Mr. Acevedo is a 56 year old male with prior medical history of CAD and GERD who presented to the ED with intermittent chest pain for 2-3 weeks. Chest pain awakened him from sleep, prompting the visit to the ED. He was in [place] 2 weeks ago for work and had an LHC and 2 stents placed to RCA and proximal LAD at [facility], [place] with diag. He was placed on ASA, Brilinta, Statin, and a BB. Pt presented to ED with continued, worsening chest pain for 2 days. Troponin was negative x 3, EKG was SR without ischemic changes. Pt had a stress test 10/21 that was negative for ischemia or infarct, echo on same date showed EF preserved without any other significant findings. Pt reported that the hospital in [place] recommended CABG, but he opted for stents since he was far away from home and would follow up when he got back to [place]. Pt was also wearing a Holter monitor that showed no arrhythmia. Pt also had a brain MRI to rule out CVA, which was negative for acute infarct. Pt had repeat LHC yesterday to rule out unstable angina. It revealed dobule vessel CAD, previously stented mid RCA and pLAD widely patent. EF 60%. Cardiology recommends continuing Protonix on discharge and continue ASA, Brilinta, statin, BB and DAPT uninterrupted for 1 year. Pt states that today pain is 1/10 and he describes it as a tightness. He denies SOB, diaphoresis, nausea, vomiting, or radiation of pain/tightness, denies mccabe, blurred vision, weakness. Physical exam is unremarkable. Labs are WNL and vitals are stable and WNL. Pt states that cardiology told him that he can go back to work next week, pt will need to follow up with PCP or cardiology for clearance. Pt is ready for discharge. - Time Spent with Patient Total time spent providing and/or coordinating discharge services: Less than 30 minutes - Constitutional Vitals: Temp Pulse Resp BP Pulse Ox 98.4 F 77 16 117/73 95 10/26/16 07:32 10/26/16 07:32 10/26/16 07:32 10/26/16 07:32 10/26/16 07:32 General appearance: Present: cooperative, A&O X 3, pleasant, no acute distress, answers questions appropriately - Head Head exam: Present: normal inspection - Eye Eye exam: Present: EOMI, normal appearance, conjuntiva pink. Absent: nystagmus - ENT ENT exam: Present: mucous membranes moist, normal exam, normal external ear exam - Neck Neck exam general surgery: Present: normal inspection. Absent: lymphadenopathy , tenderness - Respiratory Respiratory exam: Present: CTAB. Absent: chest wall tenderness, rales, respiratory distress, rhonchi, stridor, wheezes - Cardiovascular Cardiovascular exam: Present: RRR, +S1, +S2. Absent: clicks, diastolic murmur, gallop, systolic murmur - GI/Abdominal GI/Abdominal exam: Present: normal bowel sounds, soft. Absent: distended, hepatomegaly, tenderness - Extremities Exam Extremities exam: Present: normal capillary refill, normal inspection, warm, radial pulses palpable and symmetrical. Absent: pedal edema, tenderness - Neurological Exam Neurological exam: Present: alert, oriented X3, no focal deficits, pronater drift. Absent: facial droop, speech deficit - Skin Skin exam: Present: dry, intact, normal color, rash, warm
== END 2016-10-26 12:25 | disposition home or self-care (01) ==
LOC: EMEROO 12:39 → 3BNU 12:39
PROVIDERS: ADMIT Nurse Practitioner; ATTEND Nurse Practitioner Family